=== PATIENT | female | born 1965 | race Caucasian/White ===

== ENCOUNTER → 2018-12-27 09:53 | Outpatient (CLI) | payer BC, SELFPAY ==
--- NOTE | 2018-12-27 | DI.RAD.S_ITS ---
PROCEDURE: XR HAND RT 2V INDICATIONS: BILAT HAND PAIN TECHNIQUE: 2 views of the hand(s) acquired. COMPARISON: None. FINDINGS: Bones: No fractures or dislocations. Carpal bones are normally aligned. No suspicious bony lesions. Soft tissues: No suspicious soft tissue calcifications. IMPRESSION: No radiographic abnormalities. Dictated by: Alice Crockett M.D. on 12/27/2018 at 10:24 Approved by: Alice Crockett M.D. on 12/27/2018 at 10:24
--- NOTE | 2018-12-27 | DI.RAD.S_ITS ---
PROCEDURE: XR HAND LT 2V INDICATIONS: BILAT HAND PAIN TECHNIQUE: 2 views of the hand(s) acquired. COMPARISON: None. FINDINGS: Bones: No fractures or dislocations. Carpal bones are normally aligned. No suspicious bony lesions. Soft tissues: No suspicious soft tissue calcifications. IMPRESSION: No radiographic abnormalities. Dictated by: Alice Crockett M.D. on 12/27/2018 at 10:23 Approved by: Alice Crockett M.D. on 12/27/2018 at 10:24
== END ==
PROVIDERS: PCP Family Medicine; Visit Provider Family Medicine
DX: M79.641 Pain in right hand (principal); M79.642 Pain in left hand
CPT/HCPCS: 73120